=== PATIENT | male | born 1970 | race Caucasian/White ===

== ENCOUNTER 2021-02-18 13:57 | Outpatient (CLI) | payer BC, SELFPAY ==
--- NOTE | 2021-02-18 14:11 | ECG_ITS ---
Measurements Intervals [place] Rate: 108 P: 42 SD: 146 QRS: 0 QRSD: 86 T: 21 QT: 301 QTc: 405 Interpretive Statements SINUS TACHYCARDIA DELAYED PRECORDIAL R/S TRANSITION BASELINE ARTIFACT- I, II, III, AVR, AVL, AVF ABNORMAL ECG Electronically Signed On 02-18-2021 15:04:16 CDT by Jamal Bowman D.O.
== END 2021-02-18 13:58 | disposition home or self-care (01) ==
PROVIDERS: PCP Family Medicine; Visit Provider Surgery
DX: Z01.810 Encounter for preprocedural cardiovascular examination (principal); I10 Essential (primary) hypertension; R94.31 Abnormal electrocardiogram [ECG] [EKG]
CPT/HCPCS: 93005

== ENCOUNTER → 2021-02-20 03:17 | Outpatient (CLI) | payer BC, SELFPAY ==
[2021-02-21 04:06] LABS: SARS-CoV-2 RNA PCR Negative
== END ==
PROVIDERS: PCP Family Medicine; Visit Provider Surgery
DX: Z01.812 Encounter for preprocedural laboratory examination (principal); Z20.822 Contact with and (suspected) exposure to COVID-19
CPT/HCPCS: C9803; U0003; U0005

== ENCOUNTER 2021-02-23 02:18 | Day surgery (SDC) | payer BC, SELFPAY ==
[2021-02-17 15:21] VITALS: BMI 27.8
[2021-02-23] VITALS (7 sets, daily range): BP systolic 122–167; BP diastolic 87–100; PULSE 64–90; RESP 12–21; TEMP 36–36.2; O2SAT 95–100; BMI 27.9
[2021-02-23] MEDS: LACTATED RINGERS 1,000 ML 30 ML IV CONT ×2 (06:54→10:00)
--- NOTE | 2021-02-23 07:11 | WPDHPUPDATE1 ---
History and Physical Update Update Date/Time: 02/23/21 07:11 History and Physical has been reviewed, including an updated exam of the patient. There are NO changes in the patient's condition. Risks, benefits, and alternatives have been discussed and questions answered. Patient agrees to proceed with procedure.
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
[2021-02-23] MEDS: ceFAZolin 2 GM/D5W 50 ML 2 GM/50 ML BAG IVPB (07:32)
[2021-02-23] MEDS: BUPIVACAINE/EPINEPHRINE 0.5% 50 ML VIAL (09:30)
--- NOTE | 2021-02-23 10:32 | P.OP_ITS ---
Procedure Note - Detailed Date of Procedure 02/23/21 Pre-op Diagnosis Subcutaneous mass(suspected lipoma)7x6.5 cm right neck, 5x5 (suspected lipoma) Lt shoulder Post-op Diagnosis same Procedure Performed Excision of subcutaneous mass Rt. posterior neck Excision of subcutaneous mass left posterior shoulder region Surgeon Cheikh Scales MD Health Information Technologist Ignacia AREVALO, OR 1st assist Anesthesia general ( Via oral endotracheal tube in prone position) and local Indications Patient has enlarging subcutaneous masses at neck and posterior shoulder region which causing discomfort and are of unknown etiology. Findings Unusually lobulated subcutaneous masses in both sites otherwise appeared to be lipomas. Description of Procedure The patient was placed in the prone position. After a surgical time out confirming patient and procedure the patient was prepped and draped in the usual sterile fashion. Local anesthetic was administered subcutaneously. The lesion measured 6.5 X 7 cm on the Rt. posterior neck prior to excision. And the lesion of the Left posterior shoulder region measured 5 by 5 cm. A direct incision was made on the skin over the mass in both areas. I raised medial & lateral skin flaps on the posterior neck mass and then superior & inferior skin flaps on the posterior shoulder region. In both areas I proceeded taking a thin margin of normal subcutaneous tissue circumferentially. I dissected down to the deep subcutaneous tissues and then completely excised the subcutaneous masses in both locations. In both locations the underside of the fatty masses were densely adhered to the muscle fascia that was below them. I carefully excised the mass while taking a small margin of underlying fascia with the mass and leaving behind normal muscle. It should be mentioned that because of the unusual lobulated appearance of the neck mass during the excision and the significant scarring that seemed to be present just under the skin after excision of the main mass, I separately took a biopsy of some fatty fibrous tissue underneath one of the skin flaps. This was sent separately as a specimen approximately which measured about 1.5 x 0.8 cm in size because I was concerned about the consistency of the tissue and to be sure that we did not leave behind some type of unusual sarcomatous mass. Bleeding was controlled with electrocautery. The wound was closed in two layers. An un-dyed 2-0 Vicryl deep dermal and then a 4-0 undyed Moncryl running subcuticular closure was completed. Surgical glue applied as dressing. Patient tolerated this well. Implants None Estimated Blood Loss 15 Drains No Packing No Pathology yes Complications No immediate complications Condition stable Disposition PACU
== END 2021-02-23 11:37 | disposition home or self-care (01) ==
PROVIDERS: PCP Family Medicine; Visit Provider Surgery
PROC: (CPT 23071; principal; 2021-02-23 07:30)
DX: D17.0 Benign lipomatous neoplasm of skin and subcutaneous tissue of head, face and neck (principal); D17.22 Benign lipomatous neoplasm of skin and subcutaneous tissue of left arm; D64.9 Anemia, unspecified; I10 Essential (primary) hypertension; M06.9 Rheumatoid arthritis, unspecified; L40.50 Arthropathic psoriasis, unspecified
CPT/HCPCS: 23071; 21554; 11422; 88304; J0690; J1100; J2250; J2370; J2405; J2704; J3010; J7120

== ENCOUNTER → 2021-07-30 15:02 | Outpatient (REF) | payer BC, SELFPAY | LOC: ANHLAB 15:02 | PROVIDERS: PCP Family Medicine; Visit Provider Orthopaedic Surgery | DX: M06.9 Rheumatoid arthritis, unspecified (principal) | CPT/HCPCS: 88108 ==

== ENCOUNTER 2021-07-30 15:23 | Outpatient (NON) | payer BC, SELFPAY ==
[2021-07-30 16:59] LABS: Color Synovial Fluid Red (Colorless); Source Synovial Fluid Synovial fluid
[2021-07-30 17:00] LABS: Appearance Synovial Fluid Bloody (Clear); Lymphocytes Synovial Fluid 6 %; Macrophages Synovial Fluid 15 %; Neutrophils Synovial Fluid 79 % (0-25); Nucleated Cell Synovial Fluid 13829 /uL (0-200); RBC Synovial Fluid 17913 /uL (0-0)
[2021-07-30 17:23] LABS: Crystals Synovial Fluid None Seen (None Seen)
== END 2021-07-30 15:24 | disposition home or self-care (01) ==
LOC: ANHLAB 15:25
PROVIDERS: PCP Family Medicine; Visit Provider Orthopaedic Surgery
DX: M06.861 Other specified rheumatoid arthritis, right knee (principal)
CPT/HCPCS: 87070; 87075; 87205; 89051; 89060

== ENCOUNTER 2023-11-23 16:58 | Outpatient (NON) | payer OTHER, SELFPAY ==
[2023-11-23 20:14] LABS: Crystals Synovial Fluid None Seen (None Seen)
[2023-11-23 20:15] LABS: Appearance Synovial Fluid Cloudy (Clear); Color Synovial Fluid Yellow (Colorless); Source Synovial Fluid Synovial fluid
[2023-11-23 20:16] LABS: Nucleated Cell Synovial Fluid 42090 /uL (0-200)
[2023-11-23 20:17] LABS: RBC Synovial Fluid 30000 /uL (0-0)
[2023-11-27 11:04] LABS: Lymphocytes Synovial Fluid 6 %; Monocytes Synovial Fluid 14 %; Neutrophils Synovial Fluid 80 % (0-25)
== END 2023-11-23 16:59 | disposition home or self-care (01) ==
PROVIDERS: PCP Family Medicine; Visit Provider Physician Assistant Surgical
DX: M25.461 Effusion, right knee (principal); Z96.651 Presence of right artificial knee joint
CPT/HCPCS: 87070; 87075; 87205; 89051; 89060